=== PATIENT | male | born 1970 | race American Indian/Alaskan Native ===

== ENCOUNTER 2016-08-25 11:51 | Emergency (ER) | payer BC ==
--- NOTE | 2016-08-25 14:10 | XRay Report ---
LEFT ANKLE, 2 views: History: Pain. Bone mineralization is normal. No acute osseous abnormality or joint pathology is identified. There is mild diffuse soft tissue swelling. Moderate to large plantar spur is noted. IMPRESSION: Nonspecific soft tissue swelling or edema. No acute bony injury is appreciated. Plantar spur.
--- NOTE | 2016-08-25 17:58 | Emergency Department Report ---
ED Lower Extremity HPI - General Chief Complaint: Extremity Injury, Lower Stated Complaint: LEFT ANKLE PAIN/FALL Time Seen by Provider: 08/25/16 17:46 Source: patient Mode of arrival: Ambulatory Limitations: No Limitations - Related Data Previous Rx's Medication Instructions Recorded Last Taken Type Acetaminophen/Codeine 1 tab PO Q6H PRN #15 tab 06/12/14 Unknown Rx [Acetaminophen-Codeine #3 TAB] Ibuprofen [Motrin 800 MG tab] 800 mg PO TID PRN #21 tablet 06/12/14 Unknown Rx methOCARBAMOL [Robaxin] 500 mg PO Q6H PRN #20 tablet 06/12/14 Unknown Rx Etodolac 300 mg PO BID #15 capsule 08/25/16 Unknown Rx traMADol [Ultram 50 MG tab] 50 mg PO Q4HR PRN #15 tablet 08/25/16 Unknown Rx Allergies Allergy/AdvReac Type Severity Reaction Status Date / Time No Known Allergies Allergy Verified 06/12/14 00:28 ED Review of Systems ROS: Stated complaint: LEFT ANKLE PAIN/FALL Other details as noted in HPI Constitutional: denies: chills, fever Eyes: denies: eye pain, eye discharge, vision change ENT: denies: ear pain, throat pain Respiratory: denies: cough, shortness of breath, wheezing Cardiovascular: denies: chest pain, palpitations Endocrine: no symptoms reported Gastrointestinal: denies: abdominal pain, nausea, diarrhea Genitourinary: denies: urgency, dysuria Musculoskeletal: joint swelling. denies: back pain, arthralgia Skin: denies: rash, lesions Neurological: denies: headache, weakness, paresthesias Psychiatric: denies: anxiety, depression Hematological/Lymphatic: denies: easy bleeding, easy bruising ED Past Medical Hx - Past Medical History Previous Medical History?: Yes Hx Hypertension: Yes Additional medical history: Dizziness - Surgical History Past Surgical History?: Yes Additional Surgical History: DISC SURGERY - Social History Smoking Status: Never Smoker Substance Use Type: None - Medications Home Medications: Home Medications Medication Instructions Recorded Confirmed Last Taken Type Acetaminophen/Codeine 1 tab PO Q6H PRN #15 tab 06/12/14 Unknown Rx [Acetaminophen-Codeine #3 TAB] Ibuprofen [Motrin 800 MG tab] 800 mg PO TID PRN #21 tablet 06/12/14 Unknown Rx methOCARBAMOL [Robaxin] 500 mg PO Q6H PRN #20 tablet 06/12/14 Unknown Rx Etodolac 300 mg PO BID #15 capsule 08/25/16 Unknown Rx traMADol [Ultram 50 MG tab] 50 mg PO Q4HR PRN #15 tablet 08/25/16 Unknown Rx ED Physical Exam - General Limitations: No Limitations General appearance: alert, in no apparent distress - Head Head exam: Present: atraumatic, normocephalic - Eye Eye exam: Present: normal appearance - ENT ENT exam: Present: mucous membranes moist - Neck Neck exam: Present: normal inspection - Respiratory Respiratory exam: Present: normal lung sounds bilaterally. Absent: respiratory distress - Cardiovascular Cardiovascular Exam: Present: regular rate, normal rhythm. Absent: systolic murmur, diastolic murmur, rubs, gallop - GI/Abdominal GI/Abdominal exam: Present: soft, normal bowel sounds - Rectal Rectal exam: Present: deferred - Extremities Exam Extremities exam: Present: full ROM, tenderness, normal capillary refill, joint swelling. Absent: calf tenderness - Expanded Lower Extremity Exam Left Ankle exam: Present: full ROM, tenderness, swelling (minmal lateral swelling). Absent: deformity Neuro vascular tendon exam: Present: no vascular compromise. Absent: pulse deficit, abnormal cap refill, motor deficit, sensory deficit - Back Exam Back exam: Present: normal inspection - Neurological Exam Neurological exam: Present: alert, oriented X3 - Psychiatric Psychiatric exam: Present: normal affect, normal mood - Skin Skin exam: Present: warm, dry, intact, normal color. Absent: rash ED Course Vital Signs 08/25/16 13:46 Temperature 97.8 F Pulse Rate 81 Respiratory 20 Rate Blood Pressure 130/94 O2 Sat by Pulse 100 Oximetry ED Lower Extremity MDM - Radiology Data Radiology results: report reviewed no acute bony lesion Critical care attestation.: If time is entered above; I have spent that time in minutes in the direct care of this critically ill patient, excluding procedure time. ED Disposition Clinical Impression: Ankle sprain Disposition: DISCHARGED TO HOME OR SELFCARE Is pt being admited?: No Condition: Stable Prescriptions: Etodolac 300 mg PO BID #15 capsule traMADol [Ultram 50 MG tab] 50 mg PO Q4HR PRN #15 tablet PRN Reason: Pain Referrals: ALONDRA MARIE MD, PHD [Primary Care Provider] - 3-5 Days Forms: Work/School Release Form(ED)
[2016-08-25 18:48] VITALS: BP 136/96
== END 2016-08-25 18:47 | disposition home or self-care (01) ==
LOC: ED 11:51
DX: S93.402A Sprain of unspecified ligament of left ankle, initial encounter (principal); I10 Essential (primary) hypertension; X58.XXXA Exposure to other specified factors, initial encounter; Y93.89 Activity, other specified; Y99.8 Other external cause status; Y92.89 Other specified places as the place of occurrence of the external cause

== ENCOUNTER 2017-02-24 10:04 | Outpatient (CLI) | payer OTHER ==
--- NOTE | 2017-02-24 10:56 | XRay Report ---
AP AND LATERAL LUMBOSACRAL SPINE: History: Back pain. There is straightening of the normal lordosis. No evidence for compression deformity or subluxation. Moderate multilevel degenerative disc disease and facet arthropathy are evident. Bridging or near bridging lateral osteophytes are noted at L2-3 and L3-4. Sacrum and SI joints are unremarkable. IMPRESSION: Degenerative findings as described. No acute process.
--- NOTE | 2017-02-24 10:56 | XRay Report ---
LEFT KNEE, 2 views: History: Left knee pain. The bony architecture is intact without evidence of fracture or dislocation. No significant soft tissue abnormality is seen. IMPRESSION: Unremarkable left knee.
--- NOTE | 2017-02-24 10:57 | XRay Report ---
LEFT SHOULDER, 3 VIEWS: HISTORY: LEFT SHOULDER PAIN. Routine views demonstrate normal bony and soft tissue structures with normal joint alignment of the shoulder. IMPRESSION: Normal study.
== END 2017-02-24 10:05 | disposition home or self-care (01) ==
LOC: XRAY 10:04
PROVIDERS: ATTEND Internal Medicine
DX: M51.37 Other intervertebral disc degeneration, lumbosacral region (principal); M12.88 Other specific arthropathies, not elsewhere classified, other specified site; M25.78 Osteophyte, vertebrae; F32.9 Major depressive disorder, single episode, unspecified; F41.9 Anxiety disorder, unspecified; Z98.890 Other specified postprocedural states
CPT/HCPCS: 72100

== ENCOUNTER 2017-09-21 16:39 | Emergency (ER) | payer SELFPAY ==
[2017-09-21 17:05] VITALS: BP 158/100
[2017-09-21 17:54] LABS: Basophils # (Auto) 0.1 K/mm3 (0.0-0.1); Basophils % (Auto) 0.7 % (0.0-1.8); Eosinophils # (Auto) 0.1 K/mm3 (0.0-0.4); Eosinophils % (Auto) 0.5 % (0.0-4.3); Hemoglobin 16.2 gm/dl (11.8-15.2); Lymphocytes # (Auto) 3.4 K/mm3 (1.2-5.4); Lymphocytes % (Auto) 19.4 % (13.4-35.0); Mean Corpuscular HGB Conc 32 % (32-34); Mean Corpuscular Hemoglobin 30 pg (28-32); Mean Corpuscular Volume 91 fl (84-94); Monocytes % (Auto) 5.6 % (0.0-7.3); Red Blood Count 5.48 M/mm3 (3.65-5.03); Red Cell Distribution Width 14.2 % (13.2-15.2)
[2017-09-21 18:25] LABS: Bilirubin,Urine NEG (Negative); Blood,Urine NEG (Negative); Color,Urine Amber (Yellow); Mucus,Urine 3+ /HPF
[2017-09-21 18:27] LABS: Amphetamine Screen,Urine PRESUMPTIVE NEGATIVE; Benzodiazepines Screen,Urine PRESUMPTIVE NEGATIVE; Cocaine Screen,Urine PRESUMPTIVE NEGATIVE; Opiate Screen,Urine PRESUMPTIVE NEGATIVE
[2017-09-21 18:35] LABS: BUN/Creatinine Ratio 11; Blood Urea Nitrogen 13 mg/dL (9-20); Hemolysis Index 9
[2017-09-21 18:46] LABS: Cannabinoid Screen,Urine PRESUMPTIVE POSITIVE; Methadone Screen,Urine PRESUMPTIVE POSITIVE
[2017-09-21 19:00] LABS: Platelet Count 200 K/mm3 (140-440)
== END 2017-09-21 17:26 | disposition left against medical advice (07) ==
LOC: ED 16:39
DX: R55 Syncope and collapse (principal); Z53.21 Procedure and treatment not carried out due to patient leaving prior to being seen by health care provider; Z79.899 Other long term (current) drug therapy
CPT/HCPCS: 36415; 80048; 80307; 81001; 85025; G0480; 80320